=== PATIENT | male | born 1970 | race Two or more races ===

== ENCOUNTER 2025-03-11 17:35 | Emergency (ER) | payer OTHER ==
[~2025-03-11] VITALS: Ht 180.3 cm; Wt 112.0 kg
[2025-03-11 18:56] LABS: HEMATOCRIT 44.1 % (39.0-48.0); HEMOGLOBIN 14.8 g/dL (13-16.00); MEAN CELL VOLUME 89.9 fL (80.0-100.00); MEAN CORPUSCULAR HEMOGLOBIN 30.2 pg (27.00-32.0); MEAN CORPUSCULAR HGB CONC 33.6 g/dl (32.0-36.0); PLATELET COUNT 222 K/uL (150-450); RED CELL DISTRIBUTION WIDTH 12.5 % (11.5-14.5)
[2025-03-11 19:19] LABS: CALCIUM 9.2 mg/dL (8.5-10.1); CREATININE SERUM 1.01 mg/dL (0.70-1.30); GFR 76.98; POTASSIUM 4.37 mEq/L (3.5-5.1)
[2025-03-11 19:33] LABS: URINE APPEARANCE Clear; URINE BILIRRUBIN Negative (NEGATIVE); URINE BLOOD Negative; URINE COLOR Yellow; URINE KETONE Trace (NEGATIVE); URINE LEUKOCYTE Negative; URINE NITRATE Negative; URINE PROTEIN Negative (NEGATIVE)
[2025-03-11 19:37] LABS: URINE BACTERIA 176.2 uL (0.0-1933); URINE EPITHELIAL CELLS 13.6 uL (0.0-38.8)
[2025-03-11 19:39] LABS: URINE GLUCOSE >=1000 MG/DL (NEGATIVE); URINE RBC 1.6 uL (0.0-20.8)
[2025-03-11] MEDS ORDERED: INSULIN REGULAR, HUMAN 1,000 UNIT/10 ML UNITS IV ONE (19:45)
== END 2025-03-11 21:27 | disposition home or self-care (01) ==
LOC: ER 17:35
PROVIDERS: General Practice
DX: R73.9 Hyperglycemia, unspecified (principal); I10 Essential (primary) hypertension

== ENCOUNTER 2025-03-28 07:43 | Outpatient (CLI) | payer OTHER | END 2025-03-28 07:53 | disposition home or self-care (01) | LOC: SONOGRAMA 07:43 | PROVIDERS: ATTEND General Practice | DX: K76.0 Fatty (change of) liver, not elsewhere classified (principal); I10 Essential (primary) hypertension; E11.9 Type 2 diabetes mellitus without complications; R42 Dizziness and giddiness; R03.0 Elevated blood-pressure reading, without diagnosis of hypertension; Z11.3 Encounter for screening for infections with a predominantly sexual mode of transmission; Z12.11 Encounter for screening for malignant neoplasm of colon; Z13.0 Encounter for screening for diseases of the blood and blood-forming organs and certain disorders involving the immune mechanism; Z13.1 Encounter for screening for diabetes mellitus; Z13.220 Encounter for screening for lipoid disorders; Z13.29 Encounter for screening for other suspected endocrine disorder; Z12.5 Encounter for screening for malignant neoplasm of prostate; N39.0 Urinary tract infection, site not specified ==

== ENCOUNTER 2025-07-24 09:31 | Outpatient (CLI) | payer OTHER | END 2025-07-24 09:42 | disposition home or self-care (01) | LOC: RAD 09:31 | PROVIDERS: ATTEND Specialist | DX: E11.9 Type 2 diabetes mellitus without complications (principal); I10 Essential (primary) hypertension; M54.50 Low back pain, unspecified; R22.2 Localized swelling, mass and lump, trunk ==